=== PATIENT | male | born 1945 | race Caucasian/White ===

== ENCOUNTER 2020-10-12 18:48 | Inpatient (IN) | payer OTHER ==
[2020-10-12 19:53] VITALS: BMI 21.1
[2020-10-12] MEDS ORDERED: IBUPROFEN 400 MG TABLET (FP) PO PRN (20:10)
[2020-10-12] MEDS ORDERED: BISMUTH SUBSALICYLATE 524 MG/30 ML PO PRN (20:10)
[2020-10-12] MEDS ORDERED: ACETAMINOPHEN 325 MG TABLET (FP) PO PRN ×2 (20:10)
[2020-10-12] MEDS ORDERED: ONDANSETRON *ODT* 4 MG TABLET SL PRN (20:10)
[2020-10-12] MEDS ORDERED: MAGNESIUM CITRATE 300 ML BOTTLE PO PRN (20:10)
[2020-10-12] MEDS ORDERED: MAGNESIUM HYDROX 2400MG/30ML ORAL SUSPENSION 30 ML CUP PO PRN (20:10)
[2020-10-12] MEDS ORDERED: METHOCARBAMOL 500 MG TABLET PO PRN (20:10)
[2020-10-12] MEDS ORDERED: diazePAM 5 MG TABLET PO PRN (21:24)
[2020-10-12] MEDS ORDERED: diazePAM 5 MG TABLET ONE (21:44)
[2020-10-12] MEDS ORDERED: hydrOXYzine PAMOATE 25 MG CAPSULE (FP) PO ONE (21:44)
[2020-10-12] MEDS: hydrOXYzine PAMOATE 25 MG CAPSULE (FP) PO PRN (21:53)
[2020-10-12] MEDS: THIAMINE HCL 100 MG TABLET (FP) PO SCH (22:51)
[2020-10-12] MEDS: MELATONIN 5 MG TABLETS PO SCH (22:51)
[2020-10-12] MEDS ORDERED: MIRTAZAPINE 15 MG TABLET (FP) PO ONE (23:22)
[2020-10-12] MEDS: MAG HYDROX/AL HYDROX/SIMETH 30 ML UNIT-DOSE CUP PO PRN (23:37)
[2020-10-13] MEDS: TAMSULOSIN HCL 0.4 MG CAP PO SCH ×3 (00:05→22:10)
[2020-10-13] MEDS: MAG HYDROX/AL HYDROX/SIMETH 30 ML UNIT-DOSE CUP PO PRN ×3 (08:14→23:03)
[2020-10-13] MEDS ORDERED: diazePAM 5 MG TABLET PO PRN ×2 (08:40→08:42)
[2020-10-13] MEDS ORDERED: LISINOPRIL 20 MG TABLET PO SCH (10:00)
[2020-10-13] MEDS ORDERED: PATIENT'S OWN MEDICATION (NON-FORMULARY) (Amlodipine Besylate/Benazepril [Amlodipine-Benaz PO SCH (10:00)
[2020-10-13] MEDS ORDERED: amLODIPine BESYLATE 5 MG TABLET (FP) PO SCH (10:00)
[2020-10-13] MEDS: PANTOPRAZOLE 40 MG TABLET PO SCH ×2 (10:11→22:10)
[2020-10-13] MEDS: PRENATAL VITAMINS W/ FOLIC ACID TABLET (FP) PO SCH (10:11)
[2020-10-13] MEDS: diazePAM 5 MG TABLET PO SCH ×3 (10:12→22:11)
[2020-10-13 12:40] LABS: HEMATOCRIT 40.7 % (35.4-49); HEMOGLOBIN 14.6 GM/dL (11.7-16.9); MCH 31.9 pg (25.7-33.7); MCHC 35.9 g/dl (32.0-35.9); MEAN CELL VOLUME 88.9 fl (80-96); MEAN PLT VOLUME 7.4 fl (7.5-11.1); PLATELET COUNT 220 10^3/uL (134-434); RBC 4.58 M/mm3 (4.00-5.60); WHITE BLOOD COUNT 7.4 K/mm3 (4.0-10.0)
[2020-10-13 12:48] LABS: CALCIUM 8.4 mg/dL (8.5-10.1)
[2020-10-13 12:49] LABS: ALBUMIN 3.5 g/dl (3.4-5.0)
[2020-10-13 12:52] LABS: CREATININE 1.2 mg/dL (0.55-1.3)
[2020-10-13 12:55] LABS: TOT PROT 6.3 g/dl (6.4-8.2)
[2020-10-13] MEDS: MENTHOL/PHENOL 1 EACH UD MM PRN ×2 (13:48→18:54)
[2020-10-13] MEDS: ATORVASTATIN CA 20 MG TABLET (FP) PO SCH (22:10)
[2020-10-13] MEDS: THIAMINE HCL 100 MG TABLET (FP) PO SCH (22:10)
[2020-10-13] MEDS: MIRTAZAPINE 30 MG TABLET PO SCH (22:10)
[2020-10-13] MEDS: MELATONIN 5 MG TABLETS PO SCH (22:13)
[2020-10-13] MEDS: FINASTERIDE 5 MG TABLET (FP) PO SCH (23:02)
[2020-10-14] MEDS: diazePAM 5 MG TABLET PO SCH ×4 (05:11→22:29)
[2020-10-14] MEDS: MENTHOL/PHENOL 1 EACH UD MM PRN ×2 (06:52→10:55)
[2020-10-14] MEDS: PANTOPRAZOLE 40 MG TABLET PO SCH ×2 (10:05→22:27)
[2020-10-14] MEDS: TAMSULOSIN HCL 0.4 MG CAP PO SCH ×2 (10:05→22:26)
[2020-10-14] MEDS: PRENATAL VITAMINS W/ FOLIC ACID TABLET (FP) PO SCH (10:05)
[2020-10-14] MEDS: MAG HYDROX/AL HYDROX/SIMETH 30 ML UNIT-DOSE CUP PO PRN (17:51)
[2020-10-14] MEDS ORDERED: MIRTAZAPINE 15 MG TABLET (FP) ONE (20:44)
[2020-10-14] MEDS: FINASTERIDE 5 MG TABLET (FP) PO SCH (22:26)
[2020-10-14] MEDS: THIAMINE HCL 100 MG TABLET (FP) PO SCH (22:26)
[2020-10-14] MEDS: MIRTAZAPINE 30 MG TABLET PO SCH (22:27)
[2020-10-14] MEDS: ATORVASTATIN CA 20 MG TABLET (FP) PO SCH (22:27)
[2020-10-14] MEDS: MELATONIN 5 MG TABLETS PO SCH (22:27)
[2020-10-15] MEDS: diazePAM 5 MG TABLET PO SCH ×3 (06:21→22:08)
[2020-10-15] MEDS: TAMSULOSIN HCL 0.4 MG CAP PO SCH ×2 (10:16→22:07)
[2020-10-15] MEDS: PANTOPRAZOLE 40 MG TABLET PO SCH ×2 (10:16→22:07)
[2020-10-15] MEDS: PRENATAL VITAMINS W/ FOLIC ACID TABLET (FP) PO SCH (10:17)
[2020-10-15] MEDS: MAG HYDROX/AL HYDROX/SIMETH 30 ML UNIT-DOSE CUP PO PRN ×2 (12:39→18:22)
[2020-10-15 15:16] LABS: CALCIUM 8.5 mg/dL (8.5-10.1)
[2020-10-15 15:17] LABS: ALBUMIN 3.4 g/dl (3.4-5.0); BLOOD UREA NITROGEN 15.6 mg/dL (7-18)
[2020-10-15 15:20] LABS: CREATININE 0.9 mg/dL (0.55-1.3)
[2020-10-15 15:22] LABS: BILIRUBIN,TOTAL 0.5 mg/dL (0.2-1); TOT PROT 6.4 g/dl (6.4-8.2)
[2020-10-15] MEDS ORDERED: MIRTAZAPINE 15 MG TABLET (FP) ONE (20:22)
[2020-10-15] MEDS: FINASTERIDE 5 MG TABLET (FP) PO SCH (22:07)
[2020-10-15] MEDS: MELATONIN 5 MG TABLETS PO SCH (22:07)
[2020-10-15] MEDS: THIAMINE HCL 100 MG TABLET (FP) PO SCH (22:07)
[2020-10-15] MEDS: ATORVASTATIN CA 20 MG TABLET (FP) PO SCH (22:07)
[2020-10-15] MEDS: MIRTAZAPINE 30 MG TABLET PO SCH (22:08)
[2020-10-16] MEDS: diazePAM 5 MG TABLET PO SCH ×2 (06:49→17:43)
[2020-10-16] MEDS: TAMSULOSIN HCL 0.4 MG CAP PO SCH ×2 (10:38→22:13)
[2020-10-16] MEDS: PANTOPRAZOLE 40 MG TABLET PO SCH ×2 (10:38→22:13)
[2020-10-16] MEDS: PRENATAL VITAMINS W/ FOLIC ACID TABLET (FP) PO SCH (10:38)
[2020-10-16] MEDS ORDERED: MIRTAZAPINE 15 MG TABLET (FP) ONE (21:17)
[2020-10-16] MEDS: ATORVASTATIN CA 20 MG TABLET (FP) PO SCH (22:13)
[2020-10-16] MEDS: MELATONIN 5 MG TABLETS PO SCH (22:13)
[2020-10-16] MEDS: MIRTAZAPINE 30 MG TABLET PO SCH (22:13)
[2020-10-16] MEDS: THIAMINE HCL 100 MG TABLET (FP) PO SCH (22:13)
[2020-10-16] MEDS: FINASTERIDE 5 MG TABLET (FP) PO SCH (22:13)
[2020-10-16] MEDS: hydrOXYzine PAMOATE 25 MG CAPSULE (FP) PO PRN (23:26)
[2020-10-17] MEDS ORDERED: diazePAM 5 MG TABLET PO ONE (06:00)
[2020-10-17 06:40] VITALS: BP 140/66; PULSE 59; TEMP 96.8
[2020-10-17] MEDS: PANTOPRAZOLE 40 MG TABLET PO SCH (09:21)
== END 2020-10-17 09:45 | disposition home or self-care (01) | DRG 897 ==
LOC: YASAS 18:48 → Y6N 22:04 → Y3N 10-14 11:45
PROVIDERS: ADMIT Allergy & Immunology; ATTEND Allergy & Immunology
PROC: HZ2ZZZZ Detoxification Services for Substance Abuse Treatment (ICD-10-PCS; principal; 2020-10-12)
DX: F10.230 Alcohol dependence with withdrawal, uncomplicated (principal); F10.282 Alcohol dependence with alcohol-induced sleep disorder; F10.220 Alcohol dependence with intoxication, uncomplicated; I10 Essential (primary) hypertension; N40.0 Benign prostatic hyperplasia without lower urinary tract symptoms; Z98.890 Other specified postprocedural states
CPT/HCPCS: 36415; 80053; 82947; 82962; 83036; 85027; 86780; C9803; U0003; U0005